=== PATIENT | female | born 1940 | race Caucasian/White ===

== ENCOUNTER 2018-11-08 13:34 | Inpatient (IN) | payer MEDICARE ==
[~2018-11-08] VITALS: Ht 162.6 cm; Wt 60.8 kg
[~2018-11-08 13:34] MED LIST: CARDIZEM CD120 MG PO; ELIQUIS5 MG PO; LIPITOR 20 MG T20 M1 PO
[2018-11-08 16:00] VITALS: BP 111/62
--- NOTE | 2018-11-08 16:48 | NUR ---
ASSUMMED CARE OF ON ADMITANCE TO UNIT, PT ALERT AND ORIENTED, PT DENIES PAIN, PT HAS LEFT SIDE FACIAL DROOP, MOVES ALL EXTREMITIES, VSS, PT STATES SHE HAS TROUBLE CHEWING DO TO BAD FITTING DENTURES AND HAS BEEN LOSING WEIGHT BECAUSE SHE IS NOT EATING PROPERLY, PT LIVES ALONE BUT HAS DAUGHTER FOR SUPPORT WHO LIVES NEARBY, PT AND DAUGHTER ORIENTED TO REHAB ROUTINE, DAUGHTER WILL BRING IN ADDITIONAL CLOTHES FOR PATIENT, QUESTIONS ANSWERED. ASSESSMENT COMPLETE, WILL CONTINUE TO MONITOR.
[2018-11-08 19:30] VITALS: BP 129/59
--- NOTE | 2018-11-08 20:15 | NUR ---
SITTING UP IN BED WATCHING TV AND VISITING WITH SON-IN-LAW. DENIES DISCOMFORT. DECLINED OFFER OF A SNACK. TOOK MEDICATIONS WHOLE WITH WATER. CALL LIGHT WITHIN REACH.
[2018-11-08 21:48] LABS: URINE BILIRUBIN NEGATIVE (Negative); URINE BLOOD 2+ (Negative); URINE CLARITY CLEAR; URINE COLOR YELLOW; URINE GLUCOSE-RANDOM NEGATIVE (Negative); URINE KETONES NEGATIVE (Negative); URINE LEUKOCYTES NEGATIVE (Negative); URINE NITRITE NEGATIVE (Negative); URINE PROTEIN NEGATIVE (Negative); URINE UROBILINOGEN 0.2 E.U./dl (0.2-1.0)
[2018-11-08 22:17] LABS: SQUAMOUS 4-10 Moderate /LPF (0-3)
[2018-11-08 22:18] LABS: HYALINE CASTS 0-3 Few /LPF (None Seen); URINE WBC 6-15 Few /HPF (0-5)
[2018-11-08 22:19] LABS: BACTERIA 1-9 Few /HPF (None Seen); CRYSTALS None Seen /LPF (None Seen); URINE RBC 3-10 Few /HPF (0-2)
[2018-11-09 04:54] LABS: HEMATOCRIT 39.5 % (37.0-47.0); HEMOGLOBIN 12.9 gm/dL (12.0-15.0); MCH 28.7 pg (26.0-34.0); MCHC 32.7 g/dL (28.0-37.0); MCV 87.7 fL (80.0-100.0); MPV 8.1 fl. (7.2-11.1); RBC 4.5 mil/uL (4.20-5.00); RDW-CV 13.7 % (10.5-14.5); WBC 5.9 thou/uL (4.0-11.0)
--- NOTE | 2018-11-09 05:05 | NUR ---
RESTED QUIETLY. NO COMPLAINTS VOICED. UP X ONE DURING THE NIGHT TO THE BATHROOM TO VOID. HOURLY ROUNDING IN PROGRESS.
[2018-11-09 05:31] LABS: CALCIUM 8.8 mg/dL (8.5-10.1); CREATININE 0.9 mg/dL (0.6-1.3); POTASSIUM 3.6 mmol/L (3.5-5.1)
[2018-11-09 07:30] VITALS: BP 130/78
[2018-11-09 08:00] VITALS: BP 130/78
--- NOTE | 2018-11-09 13:50 | NUR ---
Nutrition: Pt admitted to rehab with CVA. She stated she is eating as much as she usually does. She stated no recent wt changes, usual wt ~130#. Current wt 133#. Mech-alt Chopped diet 2/2 ill-fitting dentures. She stated they do not cause her pain, but they are "floppy" and hard to chew with. BG ok, albumin 3.5. She refused any Ensure products d/t taste. She does like dairy products/yogurt. Requested jeremy milk with meals - RD to order this. Overall, low to mild nutrition risk. Will follow weekly.
--- NOTE | 2018-11-09 16:25 | NUR ---
SW and Dr Garcia met with pt and pt dtr Yudith to review team conference summary and plan for pt to remain on rehab unit at least another week with team to reassess pt length of stay during team conference next Thursday 11/16. Pt and pt dtr in agreement with plan. SW met with pt and pt dtr later to complete initial assessment and introduce self and SW role on inpt rehab unit. Pt alert, oriented. Pt lives at home and was independent prior to hospitalization/CVA. Pt dtr and son in law live in [place], [place]. Pt has 5 stairs to basement. Pt has needed DME, cane. Pt has no hx of HH or SNF. SW to continue to follow to assist with safe dc planning.
[2018-11-09 20:13] VITALS: BP 146/71
--- NOTE | 2018-11-10 | NUR ---
ASSUMED CARE AT 1930. PATIENT RESTING IN BED. UP WITH STEADYING ASSIST, GAIT BELT, WALKER. DOES OWN HYGIENE AND CLOTHING ADJUSTMENTS. VOIDS PER TOILET. DENIES PAIN. REFUSES HS SNACK. TAKES MEDS WHOLE WITH WATER. STATES SHE "DOESN'T SLEEP MUCH" AND PREFERS TO WATCH TV MOST OF THE NIGHT. REMINDED SHE HAS THERAPIES IN THE MORNING AND NEEDS RESTORATIVE SLEEP. HOURLY ROUNDS CONTINUE. BED ALARM ON. CALL LITE IN REACH.
--- NOTE | 2018-11-10 05:23 | NUR ---
RESTED IN BED ALL SHIFT, OBSERVED SLEEPING AT TIMES, OTHER TIMES WATCHING TV. TURNS SELF. VOIDS PER TOILET. NO C/O PAIN. HOURLY ROUNDS CONTINUE. BED ALARM ON. CALL LITE IN REACH.
[2018-11-10 08:00] VITALS: BP 142/67
--- NOTE | 2018-11-10 18:22 | NUR ---
pt has participated with therapies today and ambulates with gaitbelt and walker and min assist of 1. pt continent of bladder. prn for headache given this am with good effect. pt alert and orientated.
[2018-11-10 20:18] VITALS: BP 141/68
--- NOTE | 2018-11-11 05:23 | NUR ---
ASSUMED CARES AT 1920. ALERT AND ORIENTED. PLEASANT. DENIED ANY PAIN. MIN ASSIST WITH GAIT BELT AND WALKER. UP TO BATHROOM. DID HAVE URINARY ACCIDENT X 1. NEEDED ASSIST WITH CHANGING. NO OTHER ISSUES OVERNIGHT. CALL LIGHT IN REACH AND BED ALARM ON.
[2018-11-11 08:23] VITALS: BP 134/67
[2018-11-11 20:19] VITALS: BP 150/57
--- NOTE | 2018-11-12 05:04 | NUR ---
ASSUMED CARES AT 1920. ALERT AND ORIENTED. PLEASANT. DENIED ANY PAIN. SBA WITH GAIT BELT AND CANE. UP TO BATHROOM. DOES OWN CARES. SLEPT OFF AND ON. NO ISSUES OVERNIGHT. CALL LIGHT IN REACH AND BED ALARM ON.
[2018-11-12 08:17] VITALS: BP 152/57
--- NOTE | 2018-11-12 16:42 | NUR ---
ASSUMED CARE AT 0730. ALERT ORIENTED PLEASANT COOPERATIVE. HX OF CVA MOVES ALL EXTREMETIES. TRANSFERS WITH SBA G BELT AND CANE AMBULATES TO BR TO VOID ABLE TO DO HYGEINE AND CLOTHING ADJUSTMENTS. DENIES PAIN OR CONCERNS. PARTICIPATING IN THERAPIES. USES CALL LIGHT APPROPRIATELY. TAKES MEDS WITHOUT DIFFICULTY. VISITORS THIS AFTERNOON.
[2018-11-12 20:18] VITALS: BP 138/63
--- NOTE | 2018-11-13 05:08 | NUR ---
ASSUMED CARES AT 1920. ALERT AND ORIENTED. PLEASANT. DENIED ANY PAIN. SBA WITH GAIT BELT AND WALKER. UP TO BATHROOM. DOES OWN CARES. NO ISSUES OVERNIGHT. CALL LIGHT IN REACH AND BED ALARM ON.
[2018-11-13 07:00] VITALS: BP 142/66
--- NOTE | 2018-11-13 15:43 | NUR ---
ASSUMED CARE AT 0730. ALERT ORIENTED PLEASANT COOPERATIVE. HX OF CVA MOVES ALL EXTREMETIES TRANSFERS WITH SBA G BELT CANE AMBULATES TO BR TO VOID ABLE TO DO HYGEINE AND CLOTHING ADJUSTMENTS. FEEDS SELF TAKES MEDS WITH WATER WITHOUT DIFFICULTY. DENIES PAIN OR CONCERNS RECEIVED ORDER FOR METAMUCIL PRN PT. HAD A DOSE AFTER LUNCH. NO BMS FOR 4 DAYS AND PT. STATED SHE TAKES METAMUCIL PRN AT HOME. VISITORS HERE THROUGHOUT THE DAY. DENIES PAIN OR REQUESTS. USES CALL LIGHT APPROPRIATELY FOR ASSIST.
[2018-11-13 19:30] VITALS: BP 140/87; BP 157/57
--- NOTE | 2018-11-14 05:12 | NUR ---
ALERT AND ORIENTED. PLEASANT. DENIED ANY PAIN. SBA WITH GAIT BELT AND CANE. UP TO BATHROOM. DOES OWN CARES. PT ONLY AGREEABLE TO TAKE PRUNE JUICE AND WAS FINALLY ABLE TO HAVE BM. SLEPT MOST OF THE NIGHT. CALL LIGHT IN REACH AND BED ALARM ON.
[2018-11-14 07:37] VITALS: BP 134/61
--- NOTE | 2018-11-14 18:28 | NUR ---
pt has participated with therapies today and calls for assist to bathroom as needed. pt ambulates with cane,gaitbelt on and sba of 1. pt hopeing to go home this week. prn for back pain given this am with good effect. pt is continent of bowel and bladder. appetite good pt feeds self.
[2018-11-14 19:30] VITALS: BP 166/63
--- NOTE | 2018-11-14 20:00 | NUR ---
SITTING UP IN CHAIR WATCHING TV AND VISITING WITH SON-IN-LAW. DENIES DISCOMFORT. TOOK MEDICATIONS WHOLE WITH WATER. DECLINED OFFER OF A SNACK.
[2018-11-15 05:34] LABS: HEMOGLOBIN 12.2 gm/dL (12.0-15.0); MCH 28.4 pg (26.0-34.0); MCV 86.1 fL (80.0-100.0); MPV 9.2 fl. (7.2-11.1); RBC 4.3 mil/uL (4.20-5.00); RDW-CV 13.2 % (10.5-14.5); WBC 5.7 thou/uL (4.0-11.0)
--- NOTE | 2018-11-15 05:58 | NUR ---
RESTED QUIETLY. UP X ONE TO THE BATHROOM TO VOID. HOURLY ROUNDING IN PROGRESS.
[2018-11-15 06:17] LABS: ALBUMIN 2.9 g/dL (3.4-5.0); CALCIUM 8.9 mg/dL (8.5-10.1); MAGNESIUM 2.1 mg/dL (1.8-2.4); POTASSIUM 4.4 mmol/L (3.5-5.1); TOTAL BILIRUBIN 0.3 mg/dL (<0.1-1.0); TOTAL PROTEIN 6.7 g/dL (6.4-8.2)
[2018-11-15 08:00] VITALS: BP 153/62
--- NOTE | 2018-11-15 14:54 | NUR ---
SW called pt dtr in preparation for team conference and possible dc tomorrow but pt dtr did not answer so SW left detailed message and requested call back with any questions or concerns. Team/therapy expressed pt has met all therapy goals and they would recommend pt to be able to dc home soon, possibly tomorrow. SW to continue to follow to assist with safe dc planning.
--- NOTE | 2018-11-15 16:24 | NUR ---
PT CONTINUES TO PARTICIPATE WITH THERAPIES AND CALLS FOR ASSIST WITH AMBULATION TO BATHROOM AND DINNINGROOM WITH MEALS. PT AMBULATES WITH GAITBELT ON AND CANE. PT DENIES PAIN AND IS CONTINENT OF B+B AND REMAINS ALERT AND ORIENTATED.
[2018-11-15 19:15] VITALS: BP 130/63
--- NOTE | 2018-11-15 19:35 | NUR ---
RESTING QUIETLY IN BED WATCHING TV. DENIES DISCOMFORT. CALL LIGHT WITHIN REACH. DECLINED OFFER OF A SNACK.
--- NOTE | 2018-11-16 05:42 | NUR ---
UP X ONE DURING THE NIGHT TO THE BATHROOM TO VOID. AWAKE AND WATCHING TV. NO COMPLAINTS VOICED. HOURLY ROUNDING IN PROGRESS.
[2018-11-16 08:22] VITALS: BP 144/71
[2018-11-16 10:00] VITALS: BP 144/71
[2018-11-16 10:15] VITALS: BP 144/71
[2018-11-16] MEDS ORDERED: TYLENOL325 MG PO (10:34)
--- NOTE | 2018-11-16 13:37 | NUR ---
AM ASSESSMENT AND VITAL SIGNS COMPLETED DOCUMENTED. PT HAS COMPLETED THERAPIES AND HAS MET HER DISCHARGE GOALS. DISCHARGE PAPERWOEK DISCUSSED WITH PATIENT AND HER DAUGHTER. PT AND BELONGINGS TRANSPORTED TO EXIT, DISCHARGED HOME IN STABLE CONDITION.
--- NOTE | 2018-11-16 14:09 | NUR ---
Team conference held. MARTITA and Dr Garcia met with pt and pt dtr to review team conference summary and plan for pt to dc home with dtr today. Pt and pt dtr in agreement with plan. Pt met all goals and is mod I to I with all tasks of mobility and ADLs. No equipment or HH services needed. Pt dtr to provide pt ride home.
== END 2018-11-16 14:17 | disposition home or self-care (01) | DRG 56 ==
LOC: M.REH 13:34
PROVIDERS: Family Medicine; ADMIT Physical Medicine & Rehabilitation
DX: I69.354 Hemiplegia and hemiparesis following cerebral infarction affecting left non-dominant side (principal); I63.9 Cerebral infarction, unspecified; E44.0 Moderate protein-calorie malnutrition; R29.810 Facial weakness; R47.81 Slurred speech; I48.91 Unspecified atrial fibrillation; I10 Essential (primary) hypertension; K59.00 Constipation, unspecified; Z88.7 Allergy status to serum and vaccine; Z91.02 Food additives allergy status; Z68.23 Body mass index [BMI] 23.0-23.9, adult